=== PATIENT | male | born 1995 | race Caucasian/White ===

== ENCOUNTER 2021-05-18 20:01 | Observation (INO) | payer OTHER ==
[2021-05-18 20:06] VITALS: BMI 26.4
[2021-05-18] MEDS ORDERED: SODIUM CHLORIDE 1,000 ML IV STA ×2 (20:14→20:49)
[2021-05-18 22:04] LABS: ALBUMIN 3.8 g/dl (3.4-5.0); BILIRUBIN,TOTAL 0.5 mg/dl (0.2-1); CREATININE 0.8 mg/dl (0.55-1.3); TOT PROT 5.9 g/dl (6.4-8.2)
[2021-05-19 00:40] LABS: SARS AG REFLEX COV19 SEND OUT negative (Negative)
[2021-05-19] MEDS ORDERED: SODIUM CHLORIDE 1,000 ML IV SCH (01:45)
[2021-05-19 06:42] VITALS: TEMP 97.6
[2021-05-19 08:11] LABS: ALBUMIN 3.8 g/dl (3.4-5.0); BILIRUBIN,TOTAL 0.9 mg/dl (0.2-1); CREATININE 0.8 mg/dl (0.55-1.3); TOT PROT 5.9 g/dl (6.4-8.2)
[2021-05-19 08:58] LABS: BASO % 0.7 % (0-2.0); EOS % 3.2 % (0-4.5); HEMATOCRIT 40.6 % (35.4-49); HEMOGLOBIN 13.8 GM/dL (11.7-16.9); LYMPH % 30.2 % (8-40); MCH 28.5 pg (25.7-33.7); MCHC 33.9 g/dl (32.0-35.9); MEAN PLT VOLUME 8.1 fl (7.5-11.1); MONO % 5.8 % (3.8-10.2); NEUT % 60.1 % (42.8-82.8); PLATELET COUNT 245 10^3/uL (134-434); RBC 4.84 M/mm3 (4.00-5.60); RDW 13.3 % (11.9-15.9); WHITE BLOOD COUNT 5.1 K/mm3 (4.0-10.0)
[2021-05-19 09:24] VITALS: BP 142/66; PULSE 74
[2021-05-20 12:07] LABS: SARS-CoV-2 NAA Not Detected (Not Detected)
== END 2021-05-19 12:15 | disposition home or self-care (01) ==
LOC: FER 20:01 → FM/S 05-19 01:34
PROVIDERS: ADMIT Hospitalist; ATTEND Nurse Practitioner Acute Care
PROC: 3E0337Z Introduction of Electrolytic and Water Balance Substance into Peripheral Vein, Percutaneous Approach (ICD-10-PCS; principal; 2021-05-19)
DX: M62.82 Rhabdomyolysis (principal); R79.89 Other specified abnormal findings of blood chemistry; X58.XXXA Exposure to other specified factors, initial encounter; Y93.89 Activity, other specified; Y92.89 Other specified places as the place of occurrence of the external cause; Y99.0 Civilian activity done for income or pay
CPT/HCPCS: 36415; 80053; 81003; 82550; 82553; 85025; 87426; 93005; 96360; 96361; 99285-25; C9803; G0378; U0003; U0005